=== PATIENT | female | born 1935 | race Caucasian/White ===

== ENCOUNTER → 2019-11-07 | Outpatient (CLI) | payer MEDICARE | END | disposition home or self-care (01) | LOC: STAR 10:58 | PROVIDERS: ATTEND Internal Medicine | DX: Z01.818 Encounter for other preprocedural examination (principal); I51.7 Cardiomegaly; I49.9 Cardiac arrhythmia, unspecified; R60.9 Edema, unspecified; I50.9 Heart failure, unspecified | CPT/HCPCS: 71046; 93005 ==

== ENCOUNTER → 2020-08-12 | Outpatient (CLI) | payer MEDICARE | END | disposition home or self-care (01) | LOC: CFH 16:10 | PROVIDERS: ATTEND Physician Assistant Medical | DX: I08.0 Rheumatic disorders of both mitral and aortic valves (principal); I10 Essential (primary) hypertension | CPT/HCPCS: 93306 ==